=== PATIENT | male | born 1960 | race Two or more races ===

== ENCOUNTER 2017-05-14 08:06 | Emergency (ER) | payer MEDICAID, MEDICARE ==
[2017-05-14] MEDS ORDERED: 0.9 % SODIUM CHLORIDE 1,000 ML BAG IV ONE (08:13)
--- NOTE | 2017-05-14 08:21 | Emergency Department Record ---
History of Present Illness - General Chief Complaint: Abdominal Pain Stated Complaint: PANCREATITIS Time Seen by Provider: 05/14/17 08:12 Source: Patient Mode of Arrival: Ambulatory Limitations: No limitations - History of Present Illness Initial Comments: 56 yo male presents with 2-3 weeks of diffuse abdominal pain. He has associated nausea and vomiting. He has had a few loose stools as well. No blood in the vomit or stools. No fevers. He reports that he had pancreatitis and diverticulitis in March of last year. He denies alcohol consumption. PCP is Dr Wing. He was seen one week ago and told his labs were abnormal. He was scheduled for a recheck today with his PCP. The patient denies alcohol use and reports his gall bladder has been removed. MD Complaint: Abdominal pain -: Week(s) (2) Location: Diffuse Radiation: Back, Epigastric Migration to: Epigastric, Periumbilical Severity: Moderate Quality: Aching Consistency: Constant Improves With: Nothing Worsens With: Eating Associated Symptoms: Anorexia, Diarrhea, Vomiting - Related Data Home Medications Medication Instructions Recorded Confirmed Last Taken Ciprofloxacin HCl [Cipro] 500 mg PO Q12HR 05/14/17 05/14/17 05/13/17 Gabapentin [Neurontin] 500 mg PO BID 05/14/17 05/14/17 Unknown Previous Rx's Medication Instructions Recorded Polyethylene Glycol 3350 [Miralax] 1 packet PO BID #1 packet 04/04/16 Hydrocodone/Acetaminophen [[place] 1 each PO Q8H #20 tablet 05/14/17 5-325 Tablet] Ondansetron [Zofran Odt] 4 mg PO Q8H #20 tab.rapdis 05/14/17 Allergies Allergy/AdvReac Type Severity Reaction Status Date / Time cyclobenzaprine HCl Allergy DIFFICULTY Verified 05/14/17 08:22 [From Flexeril] BREATHING tramadol Allergy ITCHING Verified 05/14/17 08:22 Review of Systems Constitutional: Reports: Malaise. Denies: Chills, Fever Eyes: Denies: Eye discharge, Eye pain, Photophobia ENT: Denies: Congestion, Throat pain Respiratory: Denies: Cough, Dyspnea, Hemoptysis, Stridor, Wheezes Cardiovascular: Denies: Chest pain, Palpitations, Syncope Endocrine: Reports: Fatigue. Denies: Polydipsia, Polyuria Gastrointestinal: Reports: Abdominal pain, Diarrhea, Nausea, Vomiting. Denies: Constipation, Hematemesis, Hematochezia, Melena Genitourinary: Denies: Dysuria, Frequency, Hematuria Musculoskeletal: Denies: Arthralgia, Back pain, Joint swelling, Myalgia, Neck pain Skin: Denies: Bruising, Change in color, Pruritus Neurological: Denies: Confusion, Headache Psychiatric: Denies: Anxiety Hematological/Lymphatic: Denies: Blood Clots, Easy bleeding, Easy bruising, Swollen glands Past Medical History - SOCIAL HISTORY Smoking Status: Current every day smoker - RESPIRATORY Hx Respiratory Disorders: No - CARDIOVASCULAR Hx Cardio Disorders: No Hx CHF: No (patient denies being diagnosed with chf) - NEURO Hx Neuro Disorders: No - GI Hx GI Disorders: Yes Hx Diverticulitis: Yes Hx Pancreatitis: Yes Comment:: colitis - Hx Genitourinary Disorders: No - ENDOCRINE Hx Endocrine Disorders: Yes Hx Diabetes: Yes (DM2) - MUSCULOSKELETAL Hx Musculoskeletal Disorders: Yes Hx Back Injury: Yes (L2-L3) - PSYCH Hx Psych Problems: Yes Hx Anxiety: Yes Hx Depression: Yes - HEMATOLOGY/ONCOLOGY Hx Hematology/Oncology Disorders: No Family Medical History Hx Cancer: Father, Mother, Grandparents Hx Diabetes: Father, Mother Hx Stroke: Mother Physical Exam - General General Appearance: Alert, Oriented x3, Cooperative, No acute distress Limitations: No limitations - Head Head exam: Normal inspection - Eye Eye exam: Normal appearance, PERRL. negative: Conjunctival injection, Periorbital swelling - ENT ENT exam: Normal exam, Mucous membranes moist Ear exam: Normal external inspection Nasal Exam: Normal inspection Mouth exam: Normal external inspection - Neck Neck exam: Normal inspection, Full ROM. negative: Tenderness - Respiratory Respiratory exam: Normal lung sounds bilaterally. negative: Respiratory distress - Cardiovascular Cardiovascular Exam: Regular rate, Normal rhythm, Normal heart sounds - GI/Abdominal GI/Abdominal exam: Soft, Tenderness (tender mid abdomen but soft). negative: Distended, Guarding, Rebound, Rigid - Rectal Rectal exam: Deferred - exam: Deferred - Extremities Extremities exam: Normal inspection, Full ROM, Normal capillary refill. negative: Tenderness - Back Back exam: Reports: Normal inspection, Full ROM. Denies: Muscle spasm, Rash noted, Tenderness - Neurological Neurological exam: Alert, Normal gait, Oriented X3 - Psychiatric Psychiatric exam: Normal affect, Normal mood - Skin Skin exam: Dry, Intact, Normal color, Warm Course - Reevaluation(s) Reevaluation #1: March 2016 H and P reviewed as well as CT of the Abdomen and pelvis 04/01/17. 05/14/17 08:22 05/14/17 09:05 The labs were reviewed No acute changes on the WBC count The transaminases were normal The Lipase was elevated at 264 CT scan is pending at this time. 05/14/17 12:[address] scan of the abdomen and pelvis was negative for any acute changes. No inflammatory changes. 05/14/17 12:16 The results were discussed with the patient The patient worsened yesterday after eating [facility] chicken, potatoes and gravy He is doing much better at this time. His nausea and pain are controlled I discussed a very low fat diet, 24 hour recheck in the ER with me or return sooner if worse He was doing well at home with a simple diet and then worsened after [employer]. No fever. No Leukocytosis. Normal CT scan. DC with [place] and Zofran with planned return Medical Decision Making - Lab Data Result diagrams: 05/14/17 08:20 05/14/17 08:20 Disposition Disposition: Discharge Clinical Impression: Pancreatitis Qualifiers: Chronicity: acute Pancreatitis type: unspecified pancreatitis type Acute pancreatitis complication: unspecified Qualified Code(s): K85.90 - Acute pancreatitis without necrosis or infection, unspecified Abdominal pain Qualifiers: Abdominal location: unspecified location Qualified Code(s): R10.9 - Unspecified abdominal pain Disposition: Home, Self-Care Condition: (1) Good Instructions: Pancreatitis (ED) Additional Instructions: Return in the next 24 to 48 hours to recheck your labs and examination Very low fat diet the next 2-3 days. Immediately return if you have fever, pain, vomiting, or feel dehydrated Call Dr Wing today to schedule your office recheck as well Prescriptions: Hydrocodone/Acetaminophen [[place] 5-325 Tablet] 1 each PO Q8H #20 tablet Ondansetron [Zofran Odt] 4 mg PO Q8H #20 tab.rapdis Forms: Patient Portal Access Time of Disposition: 12:18 Quality - Quality Measures Quality Measures: N/A - Blood Pressure Screening Does Patient Have Any of the Following: No Blood Pressure Classification: Pre-Hypertensive BP Reading Systolic Measurement: 123 Diastolic Measurement: 80 Screening for High Blood Pressure: < Pre-Hypertensive BP, F/U Documented > [ G8950] Pre-Hypertensive Follow-up Interventions: Referral to alternative/primary care provider.
[2017-05-14] MEDS ORDERED: ONDANSETRON HCL IV 4 MG/2 ML VIAL IVP ONE ×2 (08:23→11:01)
[2017-05-14] MEDS ORDERED: HYDROMORPHONE HCL 1MG/ML **SYRINGE IVP ONE (08:24)
[2017-05-14 08:34] LABS: BASO % 0.3 % (0-6); EOS % 0.9 % (0-6); HEMATOCRIT 47.4 % (42.0-52.0); LYMPH % 19.3 % (16-45); MEAN CELL VOLUME 87.9 fl (81-97); MEAN CORPUSCULAR HEMOGLOBIN 29.7 pg (27-33); MEAN CORPUSCULAR HGB CONC 33.8 g/dl (32-36); MEAN PLATELET VOLUME 10.6 fl (7.4-10.4); MONO % 6.5 % (0-9); PLATELET COUNT 279 K/uL (130-400); RED BLOOD COUNT 5.39 M/uL (4.40-5.70); RED CELL DISTRIBUTION WIDTH 13.4 % (11.5-14.5)
[2017-05-14 08:44] LABS: INR 0.94; PARTIAL THROMBOPLASTIN TIME 25.7 SECONDS (24.5-39.1); PROTHROMBIN TIME (PATIENT) 10.1 SECONDS (9.5-12.1)
[2017-05-14 08:53] LABS: ALBUMIN 4.1 g/dL (4.0-5.0); ALKALINE PHOSPHATASE 110 U/L (40-129); ALT/SGPT 9 U/L (<41); AST/SGOT 8 U/L (10.0-50.0); BLOOD UREA NITROGEN 15 mg/dL (6-20); CREATININE 0.6 mg/dL (0.7-1.2); EST GLOMERULAR FILTRATION RATE > 60 mL/min; GLUCOSE,RANDOM 226 mg/dL (74-109); LIPASE 268 U/L (13-60); TOTAL PROTEIN 7.7 g/dL (6.6-8.7)
[2017-05-14 08:54] LABS: BILIRUBIN,DIRECT < 0.2 mg/dL (0-0.3)
[2017-05-14] MEDS ORDERED: HYDROCODONE/APAP 7.5/325MG TABLET PO ONE (12:22)
--- NOTE | 2017-05-14 14:46 | CT SCAN REPORT ---
EXAM: ABDOMEN AND PELVIS CT WITH IV CONTRAST HISTORY: ACUTE GENERALIZED ABDOMINAL PAIN, NAUSEA, VOMITING. TECHNIQUE: Contiguous axial images from the lung bases to the symphysis pubis were obtained after the uneventful intravenous administration of 100 ml of Omnipaque 300. Oral contrast was also utilized. Comparison: Abdomen and pelvis CT 04/01/16. FINDINGS: The lung bases are clear. The liver, spleen, kidneys, adrenals, and pancreas are unremarkable. The gallbladder is absent. The visualized loops of small and large bowel are of normal caliber. Enteric staple line of the sigmoid colon anterior mid pelvis. No intestinal obstruction. Mild aortoiliac calcification. No free intraperitoneal fluid or adenopathy. Incisional scar lower abdomen as well as left lower quadrant. Mild chronic appearing wedge deformity of the L2 vertebral body unchanged. No lytic or blastic lesion. IMPRESSION: 1. NO ACUTE PROCESS OF THE ABDOMEN OR PELVIS. 2. POSTOPERATIVE CHANGE OF THE COLON WITH ENTERIC STAPLE LINE AT THE SIGMOID. NO INTESTINAL OBSTRUCTION. JOB NUMBER: [id number] [facility]
== END 2017-05-14 12:56 | disposition home or self-care (01) ==
LOC: ER 08:06
DX: K85.90 Acute pancreatitis without necrosis or infection, unspecified (principal); R10.13 Epigastric pain; R11.2 Nausea with vomiting, unspecified; R19.7 Diarrhea, unspecified; E11.9 Type 2 diabetes mellitus without complications
CPT/HCPCS: 99284 ×2; 96376; 96374; 96375; 96361; 83690; 85025; 85730; 85610; 80076; 80048; 74177; Q9967; J2405; J1170; J7030